=== PATIENT | female | born 1940 | race Caucasian/White ===

== ENCOUNTER 2022-02-01 14:53 | Emergency (ER) | payer OTHER ==
[~2022-02-01] VITALS: Ht 157.5 cm; Wt 38.6 kg
[2022-02-01 14:55] VITALS: BP 94/57
--- NOTE | 2022-02-01 14:55 | NUR ---
[facility] ALS TO ER BED 1
--- NOTE | 2022-02-01 15:00 | NUR ---
pt bib als run from home c/o wound dehiscence. pt [place] [facility] [place] purulent drainage with maggotts noted in wound. pt incontinent of loose stool. pt gcs 15. c/o body and abdominal pain. pt appears dirty and discheveled and cachetic. stach on monitor. iv inserted to left fa #[id number] blood drawn and sent to lab.
[2022-02-01] MEDS ORDERED: PIPERACILLIN/TAZOBACTAM 3.375 GM in DEXTROSE 5% 50 ML IV ONE (15:05)
[2022-02-01] MEDS ORDERED: VANCOMYCIN 1,000 MG in DEXTROSE 5% 250 ML IV ONE (15:05)
[2022-02-01] MEDS ORDERED: NACL 0.9% 1,000 ML IV ONE ×2 (15:05→16:15)
--- NOTE | 2022-02-01 15:24 | NUR ---
Patient noted to have existing wounds upon arrival to ER. Photos taken of wound and placed in chart. Wound covered with dressing. Physician informed. pt has 3 wounds found at this time. pt has wound present on right lower abdominal region, area is stapled but appears to be open with full thickness, yellow thick discharge with black specs and maggots present. pt has another wound on mid abdominal area, area is stapled but appears to be open with full thickness, yellow thick discharge with black specs and maggots present. pt has another wound on sacral area, no bleeding/discharge present, possible pressure injury with redness on buttocks.
[2022-02-01] MEDS ORDERED: PIPERACILLIN/TAZOBACTAM 3.375 GM VIAL IV ONE (15:48)
[2022-02-01] MEDS ORDERED: VANCOMYCIN 1,000 MG VIAL ONE (15:49)
[2022-02-01 15:52] LABS: HEMATOCRIT 30.5 % (36-48); HEMOGLOBIN 9.8 g/dL (12.0-16.0); MEAN CORPUSCULAR HEMOGLOBIN 29 pg (27-31); MEAN CORPUSCULAR HGB CONC 32 g/dL (33-37); MEAN CORPUSCULAR VOLUME 90.5 fL (80-94); PLATELET COUNT (AUTO) 136 K/uL (140-450); RED BLOOD CELL COUNT(AUTO) 3.37 MIL/uL (4.20-5.40); RED CELL DISTRIBUTION WIDTH 13.3 % (11.6-13.7)
--- NOTE | 2022-02-01 16:00 | NUR ---
pt continues to have loose watery stool, rectal tube placed per order. pt noted with excorition to buttocks and open pressure wound to coccyx. pictures taken and placed in chart.
[2022-02-01 16:01] LABS: WHITE BLOOD COUNT (AUTO) 33.4 K/uL (4.8-10.8)
[2022-02-01 16:18] LABS: ALBUMIN 1.2 g/dL (3.4-5.0); ASPARTATE AMINOTRANSFERASE 18 U/L (15-37); CARBON DIOXIDE 24.6 mmol/L (21-32); CHLORIDE 103 mmol/L (98-107); CREATININE 1.1 mg/dL (0.6-1.3); GLUCOSE 212 mg/dL (74-106); SODIUM SERUM 141 mmol/L (136-145); TOTAL BILIRUBIN 0.4 mg/dL (0.0-1.0); UREA NITROGEN, BLOOD 43 mg/dL (7-18)
[2022-02-01 16:23] LABS: POTASSIUM 2.6 mmol/L (3.5-5.1)
[2022-02-01 16:24] LABS: LYMPHOCYTES % (MANUAL) 6 % (20-46); METAMYELOCYTES % 1 % (0-0); MONOCYTES % (MANUAL) 1 % (5-12); PROMYELOCYTES % 1 % (0-0)
[2022-02-01] MEDS ORDERED: KCL 20 MEQ/WATER INJ PREMIX 200 ML IV ONE ×2 (16:30→16:55)
--- NOTE | 2022-02-01 17:00 | NUR ---
pt back from ct.
[2022-02-01] MEDS ORDERED: ENOXAPARIN 40 MG/0.4 ML SYR SUBQ ONE (17:45)
--- NOTE | 2022-02-01 18:02 | NUR ---
pt resting in gurney pending admission vs tx. nad. safety maintained.
[2022-02-01 18:11] LABS: APPEARANCE,URINE CLEAR (CLEAR); BILIRUBIN,URINE NEGATIVE (NEGATIVE); BLOOD, URINE TRACE-I (NEGATIVE); COLOR,URINE YELLOW (YELLOW); LEUKOCYTE ESTERASE ,URINE NEGATIVE (NEGATIVE); NITRITE, URINE NEGATIVE (NEGATIVE); UGLUCOSE NEGATIVE (NEGATIVE)
[2022-02-01 18:14] LABS: RBC,URINE 0-5 /HPF (0-5)
[2022-02-01 18:15] LABS: WBC,URINE NONE SEEN /HPF (0-5)
--- NOTE | 2022-02-01 19:30 | NUR ---
Pt resting in [facility], safety maintained, rectal tube inserted by AM shift RN, carcamo catheter in place and patent, IVs intact, patient does not c/o pain or discomfort. Patient turned to left side with pillow support. Addendum: 02/02/22 at 0721 by [id number] Pt resting in [facility], safety maintained, rectal tube inserted by AM shift RN, carcamo catheter in place and patent, IVs intact, patient stated pain is "0/10" and patient does not display signs of discomfort. Patient turned to left side with pillow support.
--- NOTE | 2022-02-01 21:40 | NUR ---
Pt resting in [facility], safety maintained, rectal tube inserted by AM shift RN, carcamo catheter in place and patent, IVs intact, patient does not c/o pain or discomfort. Patient turned to right side with pillow support. Addendum: 02/02/22 at 0722 by [id number] Pt resting in [facility], safety maintained, rectal tube inserted by AM shift RN, carcamo catheter in place and patent, IVs intact, patient stated pain is "0/10" and patient does not display signs of discomfort. Patient turned to right side with pillow support.
--- NOTE | 2022-02-01 22:31 | NUR ---
Dr. Martinez asked about patient's diet. Dr. Martinez stated, "Patient can have something soft and a little bit of fluid to drink."
--- NOTE | 2022-02-01 23:00 | NUR ---
Pt resting in [facility], safety maintained, rectal tube inserted by AM shift RN, carcamo catheter in place and patent, IVs intact, patient does not c/o pain or discomfort. Patient turned to left side with pillow support. Addendum: 02/02/22 at 0722 by [id number] Pt resting in [facility], safety maintained, rectal tube inserted by AM shift RN, carcamo catheter in place and patent, IVs intact, patient stated pain is "0/10" and patient does not display signs of discomfort. Patient turned to left side with pillow support.
--- NOTE | 2022-02-02 00:38 | NUR ---
Pt resting in [facility], safety maintained, rectal tube inserted by AM shift RN, carcamo catheter in place and patent, IVs intact, patient does not c/o pain or discomfort. Patient turned to right side with pillow support. Addendum: 02/02/22 at 0722 by [id number] Pt resting in [facility], safety maintained, rectal tube inserted by AM shift RN, carcamo catheter in place and patent, IVs intact, patient stated pain is "0/10" and patient does not display signs of discomfort. Patient turned to right side with pillow support.
--- NOTE | 2022-02-02 02:00 | NUR ---
Pt resting in [facility], safety maintained, rectal tube inserted by AM shift RN, carcamo catheter in place and patent, IVs intact, patient does not c/o pain or discomfort. Patient turned to left side with pillow support. Addendum: 02/02/22 at 0723 by [id number] Pt resting in [facility], safety maintained, rectal tube inserted by AM shift RN, carcamo catheter in place and patent, IVs intact, patient stated pain is "0/10" and patient does not display signs of discomfort. Patient turned to left side with pillow support.
--- NOTE | 2022-02-02 04:10 | NUR ---
Pt resting in [facility], safety maintained, rectal tube inserted by AM shift RN, carcamo catheter in place and patent, IVs intact, patient does not c/o pain or discomfort. Patient turned to right side with pillow support. Addendum: 02/02/22 at 0723 by [id number] Pt resting in [facility], safety maintained, rectal tube inserted by AM shift RN, carcamo catheter in place and patent, IVs intact, patient stated pain is "0/10" and patient does not display signs of discomfort. Patient turned to right side with pillow support.
--- NOTE | 2022-02-02 04:49 | NUR ---
Report given to [facility] Telemetry 3 Station Nurse Ludmila [place]. [facility] Telemetry Nurse Ludmila RN verbalized understanding of report, no further questions.
--- NOTE | 2022-02-02 05:00 | NUR ---
Sutherland Catheter placed by AM shift nurse Shauna [place] per CANDACE KEN verbal orders. Order placed in additional notes. CANDACE KEN aware. Addendum: 02/02/22 at 0607 by [id number] Sutherland Catheter placed by AM shift nurse Shauna [place] per CANDACE KEN verbal orders. Order inputted by ER physician. CANDACE KEN aware.
--- NOTE | 2022-02-02 05:00 | NUR ---
Rectal tube placed by AM shift nurse Shauna RN per ER MD verbal orders. Order placed in additional notes. ER MD aware.
--- NOTE | 2022-02-02 05:50 | NUR ---
Pt resting in [facility], safety maintained, rectal tube inserted by AM shift RN, carcamo catheter in place and patent, IVs intact, patient does not c/o pain or discomfort. Patient turned to left side with pillow support. Addendum: 02/02/22 at 0725 by [email or web address] Pt resting in [facility], safety maintained, rectal tube inserted by AM shift RN, carcamo catheter in place and patent, IVs intact, patient stated pain is "0/10" and patient does not display signs of discomfort. Patient turned to left side with pillow support.
--- NOTE | 2022-02-02 06:12 | NUR ---
[facility] TRANSPORT AT BEDSIDE
--- NOTE | 2022-02-02 06:15 | NUR ---
[facility] Telemetry 3 Station Nurse Ludmila [place] called at [phone], informed [facility] arrived to pick patient up for transport. Patient safely transferred to ambulance for transfer.
--- NOTE | 2022-02-02 06:30 | NUR ---
Patient to be transferred to [facility]. Is being transferred due to continuity of care for surgery. Receiving facility has accepting physician and available space. ER physician has signed transfer form. Responsible libertarian has agreed to transfer and signed form, 2 RN signature. Patient belongings inventoried and will be sent with patient. Copy of nursing notes, lab reports, EKG, Physicians Orders and X-rays to be sent with patient. Report called to Ludmila [place] at receiving facility. [facility] ambulance service has arrived for transfer. Patient put on gurney by [facility] staff and taken to ambulance for transfer to [facility]. Patient A/Ox4, skin intact, IVs intact and patent, Rectal tube intact and patent, Sutherland catheter itact and patent.
[2022-02-02 06:34] VITALS: BP 119/69
--- NOTE | 2022-02-02 06:57 | NUR ---
PT TAKEN BY [facility] TRANSPORT
== END 2022-02-02 06:57 | disposition short-term general hospital (02) ==
LOC: MED 14:53
DX: T81.31XA Disruption of external operation (surgical) wound, not elsewhere classified, initial encounter (principal); Z20.822 Contact with and (suspected) exposure to COVID-19; T81.44XA Sepsis following a procedure, initial encounter; R65.20 Severe sepsis without septic shock; J18.9 Pneumonia, unspecified organism; E87.6 Hypokalemia; Z98.890 Other specified postprocedural states; Y83.9 Surgical procedure, unspecified as the cause of abnormal reaction of the patient, or of later complication, without mention of misadventure at the time of the procedure; Y92.89 Other specified places as the place of occurrence of the external cause
CPT/HCPCS: 36415; 51702; 74177; 80053; 81001; 83605; 85025; 87040; 87086; 87426; 96361; 96365; 96366; 96368; 96372; 99291; 99292; J1650; J2543; J3370; J3480; Q9967; J7030